=== PATIENT | male | born 1955 | race Caucasian/White ===

== ENCOUNTER 2017-04-28 18:48 | Emergency (ER) | payer BC ==
--- NOTE | 2017-04-28 20:07 | EDPHY ---
H & P Time Seen by Provider: 04/28/17 19:27 HPI/ROS: CHIEF COMPLAINT: Right leg DVT HISTORY OF PRESENT ILLNESS: This is a 62-year-old male who has been having swelling in his right knee and right calf for the last 3 weeks. Patient initially thought it was a gout flare as the pain seemed to be mostly around his knee. He then had ongoing and worsening swelling of his calf and foot. Denies shortness of breath. Was seen by his primary care physician today who ordered a ultrasound. Patient's ultrasound at [facility] demonstrates DVT of the right lower extremity with clot in the proximal and mid femoral vein, popliteal vein, and calf veins. Patient denies a prior history of clotting disorders. He denies any prolonged immobilization or long trips before his symptoms started. He denies a family history of clotting disorders. He was otherwise well. Denies shortness of breath, chest pain, palpitations, headache or lightheadedness. REVIEW OF SYSTEMS: Aside from elements discussed in the HPI, a comprehensive 10-point review of systems was reviewed and is negative. PAST MEDICAL HISTORY: Gout. SOCIAL HISTORY: . works at the hospital. Reports he is quite active. VITAL SIGNS Reviewed by me. GENERAL: Well-developed, well-nourished, resting comfortably in no respiratory distress. HEENT: Atraumatic. Eyes: No icterus, no injection. Mouth: moist mucous membranes. No erythema or lesions. Neck: supple with no adenopathy. LUNGS: Clear to auscultation bilaterally, no wheezes, rhonchi or rales. CARDIAC: Regular rate and rhythm, no rubs, murmurs or gallops. ABDOMEN: Soft, nontender, nondistended, bowel sounds normal. BACK: No CVA tenderness. EXTREMITIES: No trauma. Right lower extremity: Swelling is present from the distal thigh to the foot. Significant calf swelling with asymmetry. 2+ pitting edema to the level of the knee. Foot is warm. Normal dorsalis pedis and posterior tibial pulses. Range of motion is normal throughout. NEURO: Alert and oriented, grossly nonfocal. SKIN: Warm and dry, no rash. PSYCHIATRIC: Normal mentation, no agitation. Smoking Status: Never smoked Constitutional: Initial Vital Signs Temperature (C) 36.8 C 04/28/17 18:56 Heart Rate 71 04/28/17 18:56 Respiratory Rate 16 04/28/17 18:56 Blood Pressure 150/83 H 04/28/17 18:56 O2 Sat (%) 96 04/28/17 18:56 O2 Delivery Mode Room Air Allergies/Adverse Reactions: No Known Allergies Allergy (Verified 04/28/17 18:55) Home Medications: Medication Instructions Recorded Aspirin 81mg (*) 04/28/17 Enoxaparin [Lovenox 100 MG (*)] 90 mg SQ Q12 #20 syr 04/28/17 Medical Decision Making - Diagnostics Imaging Results: Imaging Impressions Extremity Venous Study 04/28/17 17:42 Impression: Nearly occlusive DVT of the proximal and mid femoral, popliteal and proximal posterior tibial and peroneal veins. Dr. Reddy attempted to reach Dr. Britt through his answering service, however, these attempts were unsuccessful. The answering service was unable to reach Dr. Britt as of 1928 hours. The patient had already been escorted to the emergency room by our magnetic resonance technologist. Imaging: Discussed imaging studies w/ mushroom cultivator Radiologist, I viewed and interpreted images myself ED Course/Re-evaluation: Long discussion held with the patient as concerning the diagnosis of DVT, any possible provoking factors, and treatment. We will start the patient on Lovenox subcutaneously twice daily with close follow-up with Dr. Britt. Patient was encouraged to wear compression hose, remain as mobile as he is able , take the Lovenox as directed, and follow up with Dr. Britt. He reports he has an appointment tomorrow for o'clock to discussed the results of the ultrasound. Patient understands that he will need to transition to an oral medication, we briefly discussed warfarin, and Xarelto, but I will leave the final decision to the patient and Dr. Britt. I did discuss the situation with Dr. Eliezer Britt called emergency department. Patient has an appointment tomorrow. Differential Diagnosis: Differential diagnosis for the patient's primary complaint of leg swelling was considered including but not limited to cellulitis, hypoalbuminemia, congestive heart failure, cor pulmonale, chronic venous stasis and DVT. - Data Points Laboratory Results: 04/28/17 19:58 Protein C Activity Pending Protein S Activity Pending Antithrombin III Activ Pending Factor V Leiden Mutat Pending Factor V Leiden Interp Pending Fact V Leiden Review By Pending Anti-Cardiolipin IgG Ab Pending Anti-Cardiolipin IgM Ab Pending Medications Given: Discontinued Medications Enoxaparin Sodium (Lovenox) 90 mg SC EDNOW ONE Stop: 04/28/17 20:31 Last Admin: 04/28/17 20:47 Dose: 90 mg Departure - Departure Disposition: Home, Routine, Self-Care Clinical Impression: DVT (deep venous thrombosis) Qualifiers: DVT location: lower extremity Affected thrombotic vein of extremity: femoral Chronicity: acute Laterality: right Qualified Code(s): I82.411 - Acute embolism and thrombosis of right femoral vein Condition: Good Instructions: Deep Venous Thrombosis (ED) Additional Instructions: Please take the Lovenox as directed. 90 mg subcutaneously 2 times a day (every 12 hours). You will need to continue this until you can be transitioned onto oral medications. I have just her case with Dr. Eliezer Britt. He will see you tomorrow as previously scheduled. I would encourage ambulation and regular activities of daily living as much as possible. I would also encourage you to obtain compression hose. Return to the emergency department or seek care urgently if you develop shortness of breath, fever, chest pain, lightheadedness, palpitations, dizziness , or other concerns. Referrals: ELIEZER BRITT [Primary Care Provider] - As per Instructions Prescriptions: Enoxaparin [Lovenox 100 MG (*)] 90 mg SQ Q12 #20 syr
[2017-04-28] MEDS ORDERED: ENOXAPARIN 100 MG/ML SYR SC ONE (20:30)
[2017-04-28 21:32] VITALS: BP 124/92; PULSE 64; RESP 18; TEMP 97.7; O2SAT 95
== END 2017-04-28 21:35 | disposition home or self-care (01) ==
LOC: EDSTATUS 18:48
DX: I82.411 Acute embolism and thrombosis of right femoral vein (principal); Z79.82 Long term (current) use of aspirin
CPT/HCPCS: 85300-90; 85303-90; 85306-90; 86147-90; J1650

== ENCOUNTER → 2017-05-05 | Outpatient (CLI) | payer BC | LOC: FIMAGING 10:35 | PROVIDERS: ATTEND Physician Assistant | DX: R22.40 Localized swelling, mass and lump, unspecified lower limb (principal); D68.51 Activated protein C resistance ==

== ENCOUNTER 2017-07-17 22:33 | Emergency (ER) | payer BC ==
[2017-07-17 22:41] VITALS: TEMP 98.2
--- NOTE | 2017-07-17 23:30 | EDPHY ---
General - History Smoking Status: Never smoked Narrative: CHIEF COMPLAINT: Right knee pain and swelling HISTORY OF PRESENT ILLNESS: Patient complains of right knee pain and swelling. This started on Friday after cross-country skiing on Friday. He is concerned because he has a known DVT of the right lower extremity, reportedly above the knee. He has been treated with Xarelto since that time. No subsequent ultrasounds. On Friday he went cross- country skiing for 2 hr. On Friday he noted some swelling. It has steadily worsened over the past 2 and half days. Worse with ambulation to the point that he is limping today. No numbness or tingling. No redness or warmth. He is concerned about recurrence versus worsening of his DVT. He has no fall or trauma to the leg. He has had no chest pain or shortness of breath at any time. No other associated complaints or modifying factors. REVIEW OF SYSTEMS: Ten systems reviewed and are negative unless otherwise noted in the HPI PCP: Dr. Eliezer Britt SPECIALISTS: Hematology PAST MEDICAL HISTORY: Factor 5 Leiden PAST SURGICAL HISTORY: No recent surgeries SOCIAL HISTORY: Nonsmoker. Occasional alcohol and marijuana use. Works and lives here locally. FAMILY HISTORY: Noncontributory EXAMINATION General Appearance: Alert, no distress Head: normocephalic, atraumatic Eyes: Pupils equal and round, no conjunctival pallor or injection Respiratory: Lungs are clear to auscultation. No wheezing, rhonchi or crackles. Cardiovascular: Regular rate and rhythm. No murmur. Symmetric DP pulses 2+. Symmetric PT pulses 2+. Neurological: A&O, nonfocal, normal gait. Sensation to the anterior thighs, dorsum of the feet, plantar surfaces are symmetric. Skin: Warm and dry. No rash. Mild warmth to the right leg below the knee. No cellulitis or abscess noted. No crepitus. Extremities: Edema of the right knee and calf. Tenderness to the right knee circumferentially. Range of motion is intact. No warmth to the knee. Negative Homans. Neurovascular intact distally. Psychiatric: Mood and affect normal DIFFERENTIAL DIAGNOSES: Including but not limited to DVT, acute on chronic DVT, lymphedema, peripheral edema, knee effusion, osteoarthritis MDM: 11:25 p.m. Right knee pain and swelling with increased swelling of the entire leg. Patient has known DVT in the right leg diagnosed in April of 2017 at this facility. He has been on Xarelto, monitor by his primary care physician. No subsequent ultrasound prior to tonight. Repeat duplex has been ordered. I have also ordered x-ray of the knee and laboratory studies. He is in no acute distress with excellent signs of perfusion. 11:58 p.m. CBC is unremarkable. Chemistry pending. Coag pending. DVT study pending. X- ray as read by me reveals mild effusion. No fracture dislocation. 12:30 a.m. Ultrasound findings discussed between Dr. Abdul and Dr. Reddy. 1:15 a.m. Patient re-evaluated. We discussed the negative laboratory studies. We discussed the suprapatellar knee effusion. We discussed the ultrasound findings. Recommended the patient decrease his activity, ice the affected extremity. Continue his Xarelto. Continue his activities of daily living with light activity. Recommended he contact his primary care physician in the morning to discuss further care and orthopedic referral for the effusion. He is neurovascular intact at this time. He has no chest pain or shortness of breath. He is stable for discharge home. SUPERVISION: Patient was independently examined, but I discussed the case with my secondary supervising physician Dr. Abdul ([facility]) PHYSICIAN DOCUMENTATION: The patient was evaluated and managed by the Physician Bush Regenerator. My co- signature indicates that I have reviewed this chart and I agree with the findings and plan of care as documented. I am the secondary supervising physician. (uAra Abdul) - Diagnostics Imaging Results: Imaging Impressions Knee X-Ray 07/17/17 23:24 Impression: 1. No acute osseous abnormalities. 2. Tiny ossific fragments along the medial aspect of the distal femur/medial femoral condyle which may be related to remote trauma. 3. Small suprapatellar joint effusion. - Objective Vital Signs: Initial Vital Signs Temperature (C) 36.8 C 07/17/17 22:36 Heart Rate 71 07/17/17 22:36 Respiratory Rate 18 07/17/17 22:36 Blood Pressure 125/86 H 07/17/17 22:36 O2 Sat (%) 95 07/17/17 22:36 O2 Delivery Mode Room Air Allergies/Adverse Reactions: No Known Allergies Allergy (Verified 07/17/17 22:40) Home Medications: Medication Instructions Recorded Xarelto 07/17/17 Laboratory Results: Laboratory Results 07/17/17 23:38 07/17/17 23:38 07/17/17 07/17/17 07/17/17 23:38 23:38 23:38 WBC 9.96 10^3/uL H 10^3/uL (3.80-9.50) RBC 4.82 10^6/uL 10^6/uL (4.40-6.38) Hgb 15.3 g/dL g/dL (13.7-17.5) Hct 44.1 % % (40.0-51.0) MCV 91.5 fL fL (81.5-99.8) MCH 31.7 pg pg (27.9-34.1) MCHC 34.7 g/dL g/dL (32.4-36.7) RDW 12.8 % % (11.5-15.2) Plt Count 208 10^3/uL 10^3/uL (150-400) MPV 9.2 fL fL (8.7-11.7) Neut % (Auto) 73.9 % % (39.3-74.2) Lymph % (Auto) 15.2 % % (15.0-45.0) Ralls % (Auto) 9.4 % % (4.5-13.0) Eos % (Auto) 0.7 % % (0.6-7.6) Baso % (Auto) 0.4 % % (0.3-1.7) Nucleat RBC Rel Count 0.0 % % (0.0-0.2) Absolute Neuts (auto) 7.36 10^3/uL H 10^3/uL (1.70-6.50) Absolute Lymphs (auto) 1.51 10^3/uL 10^3/uL (1.00-3.00) Absolute Monos (auto) 0.94 10^3/uL H 10^3/uL (0.30-0.80) Absolute Eos (auto) 0.07 10^3/uL 10^3/uL (0.03-0.40) Absolute Basos (auto) 0.04 10^3/uL 10^3/uL (0.02-0.10) Absolute Nucleated RBC 0.00 10^3/uL 10^3/uL (0-0.01) Immature Gran % 0.4 % % (0.0-1.1) Immature Gran # 0.04 10^3/uL 10^3/uL (0.00-0.10) PT 17.8 SEC H SEC (12.0-15.0) INR 1.45 H (0.83-1.16) APTT 39.7 SEC H SEC (23.0-38.0) Sodium 137 mEq/L mEq/L (135-145) Potassium 4.3 mEq/L mEq/L (3.5-5.2) Chloride 106 mEq/L mEq/L (97-110) Carbon Dioxide 20 mEq/l L mEq/l (22-31) Anion Gap 11 mEq/L mEq/L (8-16) BUN 24 mg/dL H mg/dL (7-23) Creatinine 1.2 mg/dL mg/dL (0.7-1.3) Estimated GFR > 60 Glucose 114 mg/dL H mg/dL (70-100) Calcium 9.4 mg/dL mg/dL (8.5-10.4) Departure - Departure Disposition: Home, Routine, Self-Care Clinical Impression: Effusion of knee joint, left Chronic deep vein thrombosis (DVT) of right lower extremity Qualifiers: Affected thrombotic vein of extremity: unspecified vein of extremity Qualified Code(s): I82.501 - Chronic embolism and thrombosis of unspecified deep veins of right lower extremity Condition: Good Instructions: Deep Vein Thrombosis (ED), Leg Edema (ED), Swollen Knee Joint (ED ) Additional Instructions: 1. Light physical activity recommended 2. Ice and elevate the extremity 3. Tylenol 650 mg to 1000 mg every 6 hr as needed for pain. Do not take any ibuprofen or Aleve 4. Continue your Xarelto 5. Contact primary care physician for outpatient follow-up 6. Contact the on-call orthopedist as provided 7. ED precautions as discussed Referrals: ELIEZER BRITT [Primary Care Provider] - As per Instructions Rebel Bello MD [Medical Doctor] - As per Instructions
[2017-07-17 23:50] LABS: PLATELET COUNT 208 10^3/uL (150-400)
[2017-07-17 23:58] LABS: INR 1.45 (0.83-1.16); PROTIME(PATIENT) 17.8 SEC (12.0-15.0)
[2017-07-18 01:31] VITALS: BP 113/80; PULSE 85; RESP 16; O2SAT 96
== END 2017-07-18 01:31 | disposition home or self-care (01) ==
DX: I82.501 Chronic embolism and thrombosis of unspecified deep veins of right lower extremity (principal); Z79.01 Long term (current) use of anticoagulants

== ENCOUNTER → 2017-12-12 | Outpatient (CLI) | payer BC | LOC: FIMAGING 09:23 | PROVIDERS: ATTEND Internal Medicine Hematology & Oncology | DX: I82.491 Acute embolism and thrombosis of other specified deep vein of right lower extremity (principal) ==